=== PATIENT | male | born 1945 | race Caucasian/White ===

== ENCOUNTER 2017-12-16 07:24 | Day surgery (SDC) | payer MEDICARE ==
[~2017-12-16] VITALS: Ht 170.2 cm; Wt 77.6 kg
[~2017-12-16 07:24] MED LIST: ASPIR 8181 MG PO; ATORVASTATIN CA80 MG PO; LISINOPRIL2.5 MG PO; PRILOSEC OTC20 MG PO
--- NOTE | 2017-12-16 09:18 | NUR ---
12/16/17 0918 Annalise Wilkerson 0858 PT ARRIVED IN PACU NON RESPONSIVE TO VERBAL/TACTILE STIMULI. ABD SOFT AND PASSING FLATUS. 0915 REU. PT NON RESPONSIVE TO VERBAL/TACTILE STIMULI.
--- NOTE | 2017-12-16 10:25 | OR ---
[facility] [address], [place] [address] Signed DATE OF OPERATION: 12/16/2017 SURGEON: Cathy Bae MD PROCEDURE PERFORMED: Colonoscopy. PREOPERATIVE DIAGNOSES: 1. Screening. 2. Internal hemorrhoids. 3. External anal skin tags. POSTOPERATIVE DIAGNOSES: 1. 5 mm polyp at 55 cm. 2. Minimal to moderate internal and external hemorrhoids. 3. Minimal external skin tags. PROCEDURES: Colonoscopy with hot biopsy. ESTIMATED BLOOD LOSS: None. 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 His last colonoscopy in 2014, showed two tiny hyperplastic polyps in the rectum along with internal hemorrhoids and some external anal skin tags. He has no family history of colon cancer or polyps. He has no lower GI complaints. I gave Myra a pamphlet in the office on colonoscopy and we looked at that together along with the risks including, but not limited to gas bloating, crampy abdominal pain, bleeding, perforation, requiring surgery, and missed diagnosis. We also discussed the need for IV conscious sedation. He had expressed understanding and wished to proceed. PROCEDURE NOTE: Myra was taken into our endoscopy suite and placed in the left lateral decubitus position. He was given a preoperative antibiotic because of his hip replacement. He was also given 6 mg of Versed and 125 mcg of fentanyl to cover the case. A digital rectal exam was performed and as expected he has some induration to his prostate. The prostate is symmetric. He has the classic ridges on both sides. He has some minimal external hemorrhoid tissue with some associated skin tags. The adult colonoscope was Electronically Signed By: CATHY BAE MD 12/16/17 1025 PATIENT NAME: MYRA QUINONES OPERATIVE REPORT DATE OF : 43 REPORT #: [id number] PHYSICIAN: CATHY BAE MD PCP: MICHELINE BISWAS MD REPORT IS CONFIDENTIAL AND NOT TO BE RELEASED WITHOUT AUTHORIZATION [facility] [address] [place] [id number] Signed then introduced and advanced all around into the cecum under direct visualization of camera without difficulty. His prep was good. The scope was slowly withdrawn and we saw no pathology in the colon except for a single polyp. It was easily removed with two bites of hot biopsy forceps. The rectum was unremarkable. Upon retroflexion of scope, he does have [id number] internal hemorrhoid tissue. The gas was then suctioned out and the colonoscope removed. Myra tolerated the procedure quite well. RECOMMENDATIONS: I will see Myra back in my office in 7 to 14 days to review his results. He can resume his aspirin in 1 week. Cathy Bae MD ALB/MODL /[id number] cc: MD Micheline Ervin MD Copies: CATHY BAE MD, JONATHAN MD ~ Electronically Signed By: CATHY BAE MD 12/16/17 1025 PATIENT NAME: MYRA QUINONES OPERATIVE REPORT DATE OF : 43 REPORT #: [id number] PHYSICIAN: CATHY BAE MD PCP: MICHELINE BISWAS MD REPORT IS CONFIDENTIAL AND NOT TO BE RELEASED WITHOUT AUTHORIZATION
== END 2017-12-16 09:58 | disposition home or self-care (01) ==
LOC: OPS 07:24 → DS 07:24 → OPS 08:15 → DS 08:15 → OPS 09:58
PROVIDERS: Colon & Rectal Surgery
PROC: 0DBE8ZZ Excision of Large Intestine, Via Natural or Artificial Opening Endoscopic (ICD-10-PCS; principal; 2017-12-16 08:15)
DX: Z12.11 Encounter for screening for malignant neoplasm of colon (principal); D12.6 Benign neoplasm of colon, unspecified; K64.4 Residual hemorrhoidal skin tags; K64.8 Other hemorrhoids; I25.10 Atherosclerotic heart disease of native coronary artery without angina pectoris; I10 Essential (primary) hypertension; Z95.5 Presence of coronary angioplasty implant and graft; Z79.82 Long term (current) use of aspirin; Z79.899 Other long term (current) drug therapy
CPT/HCPCS: 99153; G0500; J2250; J3010; J7120